=== PATIENT | female | born 1990 | race Caucasian/White ===

== ENCOUNTER 2020-09-21 15:06 | Emergency (ER) | payer OTHER ==
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
[2020-09-21] MEDS ORDERED: CEFAZOLIN SODIUM 1 GM/VIAL ONE (16:49)
[2020-09-21] MEDS ORDERED: SMZ./TMP. 800/160 MG TABLET ONE (16:50)
[2020-09-21] MEDS ORDERED: WATER FOR INJ,STERILE 10 ML ONE (16:50)
[2020-09-21 17:17] VITALS: BP 151/95; TEMP 98.1; O2SAT 98
== END 2020-09-21 17:09 | disposition home or self-care (01) ==
LOC: ER 15:06
DX: L03.311 Cellulitis of abdominal wall (principal)
CPT/HCPCS: 96372; 99284; J0690

== ENCOUNTER 2020-10-06 06:44 | Emergency (ER) | payer OTHER ==
--- OUTSIDE RECORDS SUMMARY | 2020-10-06 06:48 | XMS REPORT | Continuity of Care Document ---
:1990 Author Organization [facility] t Address [address] [place] [address] Care Team Providers Name Role Phone PCP Primary Care Physician Unavailable Advance Directives Directive Decision Effective Date Termination Date Comments Sour ce Yes N/A [facility] - [facility] Problems Condition Condition Condition Status Onset Resolution [...] [facility] th Nausea and Problem [facility] MORALES vomiting S - St. 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 finger of Elizabe left hand th Tobacco Problem [facility] abuse S - [facility] Elizabe th 25 weeks Problem CHRISTU gestation S - St. of Elizabe th Pneumonia Problem JENNIFER U S - [facility] th Pyelonephr Problem [facility] MORALES itis S - [facility] El[facility] th Seroma [...] Date Date Clinician Aspirin Allergy Active Unknown CHRISTU to whether 02-01 S - [facility] patient has 00:00: Tram zabe e any health 00 th problems Aspirin Propensi Active Yreka ty to 10-20 Methodi adverse 00:00: st reaction 00 s to drug Social History Social Habit Start Date Stop Date Quantity Comments Source Tobacco use and 2017-10-20 2017-10-20 Never used Dalton Cramer ethodist exposure 00:00:00 00:00:00 Sex [birth year] Dalton Cramer ethodist 00:00:00 00:00:00 Smoking Status Start Date Stop Date Source Ex-smoker (finding) 2020-06-08 12:42:00 2020-06-08 12:42:00 [facility] - [facility] Never smoker [facility] Medications Ordered Filled Start Stop Current Ordering Indication Dosage Frequency Signature Comments Components Source Medication Medication Date Date Medication? Clinician (SIG) Name Name Diclofenac 2019-07 No 75mg [facility] Sodium -13 S - St. (Voltaren) 14:14: Elizabe 75 Mg TABEC Methocarbam 2019-07 No 500mg MILTON TU ol -13 S - St. (Robaxin) 14:14: Elizabe 500 Mg TAB Methocarbam 2019-07 No 500mg [facility] TU ol 0-07 S - St. (Robaxin) 13:51: Elizabe 500 Mg TAB Prednisone 2019-07 No 20mg [facility]RI[facility]U (Deltasone) 0-07 S - St. 20 Mg TAB 13:51: Elizabe 00 th Acetaminoph 2019-07 2020- No 1 MIL[facility] TU en/Codeine 0-07 11-07 S - St. Phosphate 13:51: 00:00 Elizabe (Tylenol 00 :00 th #3) 1 Each TAB Albuterol 20200 No 2 [facility]RI[facility]U (Proair Hfa 7-12 S - St. Inh) 200 10:41: Elizabe Puff/8.5 Gm th AERO Promethazin 2019-0 No 50mg JENNIFER U e Hcl 7-12 S - St. (Phenergan) 10:41: Elizab e 25 Mg TAB 00 th Acetaminoph 2020-0 No 1 JENNIFER U en/Hydrocod 7-12 S - St. one Bitart 10:17: Elizabe ([place] 00 10/325) 1 Each TAB Albuterol 2020-0 No 2.5mg CHRISTU Sulfate 7-12 S - St. (Proventil 10:17: Elizabe Neb Soln) 00 2.5 Mg/3 Ml UD Ibuprofen 2019-0 No 800mg CHRISTU (Motrin) 7-12 S - St. 800 Mg TAB 10:17: Elizabe 00 th Albuterol 2020- No 2 [facility] (Proair Hfa 3-10 31-12 S - St. Inh) 200 13:41: 00:00 Elizabe Puff/8.5 Gm 00 :00 AERO Prednisone 2019- No 20mg JENNIFER U (Deltasone) 3- 04-05 S - St. 20 Mg TAB 13:41: 00:00 Elizabe 00 :00 th Azithromyci 2019- No 250mg CHRI SYDNEE n 3-10 28-04 S - St. (Zithromax) 13:41: 00:00 Lynne be 250 Mg TAB 00 : Amoxicillin 2019- No 875mg CHRI SYDNEE /Clavulanat -10-05 S - St. e Potassium 13:41: 00:00 [...] 01:40: 00:00 Elizab e (Prenatabs 00 :00 Rx Tablet) 1 Each TABLET Promethazin 2018-07- No 12.5mg CHR ISTU e Hcl 08-2205 S - St. (Phenergan) 01:40: 00:00 Lynne be 12.5 Mg 00 :00 th TABLET Cephalexin 2018- No 500mg MILTON TU (Keflex) 03-03 S - St. 500 Mg CAP 11:26: 00:00 Elizab e 00 :00 th Cephalexin 2019- No 500mg MILTON MORALES (Keflex) 8-08 08-08 S - St. 500 Mg CAP 11:24: 00:00 Elizab e 00 :00 th Acetaminoph 2018- 2019- No 1 MIL[facility] MORALES en/Hydrocod 12-15- S - St. one Bitart 18:04: 00:00 Elizab e ([place] 00 :00 th 10/325) 1 Tab TAB Cephalexin 2019- No 250mg MILTON MORALES (Keflex) 5- S - St. 250 Mg CAP 18:03: 00:00 Elizab e 00 :00 th Cephalexin 2019- No 500mg MLITON MORALES (Keflex) -14 12- S - St. 500 Mg CAP 22:08: 00:00 Elizab e 00 :00 th Trimethopri 2019- No 2 [place] MORALES m/Sulfameth 4-14 11- S - St. oxazole 22:08: 00:00 Elizabe (Bactrim 00 :00 th Ds, Septra Ds, Sulfatrim Ds) 1 Each TAB Trimethopri 2019- No 1 [place] MORALES m/Sulfameth 4-18 - S - St. oxazole 17:58: 00:00 Elizabe (Bactrim 00 :00 th Ds, Septra Ds, Sulfatrim Ds) 1 Each TAB Cephalexin 2019- No 500mg [facility] MORALES (Keflex) 4-18 - S - St. 500 Mg CAP 17:58: 00:00 Elizab e 00 :00 th Prednisone 2018- 2019- No 60mg JENNIFER U (Deltasone) 3-13 - S - St. 20 Mg TAB 23:24: 00:00 Elizabe 00 :00 th Azithromyci 2019- No 1 MIL[place] MORALES n 2-19 - S - St. (Zithromax 21:43: 00:00 Elizab e Z-Frank) 6 00 :00 th Tab/Pkg TAB Albuterol 2019- No 1 [facility]U Sulfate 4-08 04- S - St. (Proventil 16:52: 00:00 Elizab e Hfa Inh) 00 :00 th 200 Puff/6.7 Gm AERO Amoxicillin 2018- No 875mg CHRI SYDNEE /Clavulanat -02 27- S - St. e Potassium 16:52: 00:00 Lynne be (Augmentin 00 : 875 Mg) 875 Mg TABLET Methocarbam 2018- No 500mg CHRI SYDNEE ol -02 27- S - St. (Robaxin) 16:52: 00:00 Elizabe 500 Mg TAB 00 :00 Tramadol/Ac 2018- No 1 MILTON TU etaminophen -02 27- S - St. (Ultracet) 16:52: 00:00 Elizab e 1 Tab TAB : Meloxicam 2015-07- No 7.5mg JNENIFER U (Mobic) 7.5 2-11 27- S - St. Mg TAB 18:17: 00:00 Elizabe 00 : Prednisone 2015-07 2019- No 40mg JENNIFER U (Deltasone) 2-11 27- S - St. 20 Mg TAB 18:17: 00:00 Elizabe 00 : Tramadol 2015-07 2019- No 50mg CHRISTU Hcl 2-11 27- S - St. (Ultram) 50 18:17: 00:00 Lynne be Mg TAB 00 : Albuterol 2014-07 2019- No 1 CHRISTU (Proair Hfa 08-01 S - St. Inh) 200 15:04: 00:00 Elizabe Puff/8.5 Gm 00 : AERO Azithromyci 2014-07 2019- No 1 MILTON MORALES n -11-14 S - St. (Zithromax 15:04: 00:00 Elizab e Z-Frank) 6 00 :00 th Tab/Pkg TAB Prednisone 2014-07 2019- No 40mg JENNIFER U (Deltasone) 08-01 S - St. 20 Mg TAB 15:04: 00:00 Elizabe 00 : th Tramadol 2019- No 50mg CHRISTU Hcl -11-14 S - St. (Ultram) 50 18:11: 00:00 Lynne be Mg TAB 00 :00 Ibuprofen 2019- No 800mg JENNIFER U (Motrin) -24 - S - St. 800 Mg TAB 16:50: 00:00 Elizab e 00 :00 th Ondansetron 2019- No 4mg MILTON TU Hcl -24 - S - St. (Zofran) 4 16:50: 00:00 Elizab e Mg TAB 00 :00 Penicillin 2019- No 500mg MILTON TU V Potassium -17 11- S - St. (Pen Vk) 16:50: 00:00 Elizabe 500 Mg TAB 00 : Tramadol 2019- No 50mg CHRISTU Hcl -24 - S - St. (Ultram) 50 16:50: 00:00 Lynne be Mg TAB 00 :00 Labetalol 2019- No 100mg CHRISTU Hcl - S - St. (Normodyne) 00:00 Elizabe 100 Mg TAB :00 Promethazin 2019- No 50mg CHRISTU e Hcl - S - St. (Phenergan) 00:00 Elizabe 50 Mg :00 th TABLET Immunizations Ordered Immunization Filled Immunization Date Status Commen ts Source Name Name Measles/Mumps/Rubell 2020-02-05 Completed [facility] - [facility] a 00:00:00 [facility] Tetanus/Diphtheria/A 2020-02-05 Completed [facility] - St[facility] cellular Pertussis 00:00:00 Elizab eth Tetanus/Diphtheria/A 2018-10-06 [facility]:00 Tramzab [facility] Vital Signs Vital Name Observation Time Observation Value Comments Source BP Systolic 2020-06-08 14:26:00 119 mm[Hg] [facility] Heart Rate 2020-06-08 14:26:00 86 /min [facility] Respiratory rate 2020-06-08 14:26:00 17 /min [facility] Body Temperature 2020-06-08 14:26:00 98.2 [degF] [facility] BP Diastolic 2020-06-08 14:26:00 81 mm[Hg] [facility] BP Diastolic 2020-06-08 12:06:00 87 mm[Hg] [facility] BP Systolic 2020-06-08 12:06:00 122 mm[Hg] [facility] Heart Rate 2020-06-08 12:06:00 108 /min [facility] Respiratory rate 2020-06-08 12:06:00 18 /min [facility] Body Temperature 2020-06-08 12:06:00 98.0 [degF] [facility] - [facility] Procedures Procedure Date / Time Performed Performing Clinician Brock purvi Computed tomography of 2020-06-08 00:00:00 MILTON TUS - St. cervical spine without [facility] contrast Plan of Care Planned Activity Planned Date Details Comments Source Goal Patient referral [code = [facility]R [facility] - St. 8846141 ] [facility] Goal Patient referral [code = [facility] - St. [id number] ] [facility] Goal Patient referral [code = [facility] - St. [id number] ] [facility] Goal Patient referral [code = [facility] - St. [id number] ] [facility] Instructions Where to Get Help Paying [facility] - St. for Your Prescriptions Lynne everardo Instructions Wound Infection [facility] - S t. [facility] Instructions DI for Acute Bronchitis [facility] - [facility] Instructions Replacing Sweetened [facility] - St. Drinks with Noncaloric Lynne everardo Drinks May Aid in Weight Loss Instructions Coronavirus Disease 2019 [facility] - [facility] (COVID-19) Overview Arabella h Encounters Start End Encounter Admission Attending Care Care Encounter Source Date/Time Date/Time Type Type Clinicians Facility Department ID 2020-06-08 2020-06-08 Departed NIKITA PARHAM [id number] [facility] 12:06:00 14:25:[address] 72 S - St. Room [facility] Klein Results Test Description Test Time Test Comments Results Result Comments Source FINGER 1 DIGIT 2018-12-29 [facility] [place] 20:14:00 [address] [place], [place] [address]DVIOGGMDSN IMAGING REPORTPatient Name: VARGHESE KUMARAbida of Service: [id number]: 28 Sex: F Order #: [id number] Room: [facility]: 1990 X-Ray Number: [id number] Record Number: [id number] Hospital Number: [id number] Physician: PRABHA CARDENAS Physician: Ayana GONZALEZ second [...]
[2020-10-06 07:41] LABS: Absolute Lymphocytes (CBC) 1.6 K/uL (0.7-4.9); Basophils % 1.2 % (0-1.3); Hematocrit 41.7 % (36.0-45.0); RBC Red Blood Cell Count 4.84 M/uL (3.86-4.86)
[2020-10-06 07:57] LABS: BUN Blood Urea Nitrogen 8 mg/dL (7-18); Bicarbonate 26 mmol/L (21-32); Glucose Level 84 mg/dL (74-106); Potassium 4.1 mmol/L (3.5-5.1); Sodium Level 144 mmol/L (136-145)
[2020-10-06 08:01] LABS: HCG, Quantitative < 1 mIU/mL (1-3)
--- NOTE | 2020-10-06 08:20 | ER ---
Nurse's Notes [facility] Name: Wilda Banda Age: 29 yrs Sex: Female : 1990 Arrival Date: 10/06/2020 Time: 06:47 Bed 20 Private MD: Diagnosis: Other abnormal uterine and vaginal bleeding Presentation: 10/06 07:23 Chief complaint: Patient states: burning with urination. Pt states that she has been on ss two antibiotics, but quit taking one almost a week ago because she found out she was and believed it may cause defects. Coronavirus screen: Client denies travel out of the [place] in the last 14 days. Ebola Screen: Patient denies exposure to infectious person. Patient denies travel to an Ebola-affected area in the 21 days before illness onset. Initial Sepsis Screen: Does the patient meet any 2 criteria? No. Patient's initial sepsis screen is negative. Does the patient have a suspected source of infection? No. Patient's initial sepsis screen is negative. Risk Assessment: Do you want to hurt yourself or someone else? Patient reports no desire to harm self or others. Onset of symptoms is unknown. 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 surgeries after ; ss Tonsillectomy; Knee surgery; - Immunization history:: Adult Immunizations up to date. - Social history:: Smoking status: Patient denies any tobacco usage or history of. Screenin:29 Abuse screen: Denies threats or abuse. Denies injuries from another. Nutritional ss screening: No deficits noted. Tuberculosis screening: Never had TB. Fall Risk None identified. Assessment: 08:09 Obstetrical Assessment: General assessment: awake and alert, anxious, skin warm and bw dry, Patient reports Abdominal pain, bleeding since this AM . General: Appears in no apparent distress. uncomfortable, Behavior is cooperative, appropriate for age, anxious. Pain: Complains of pain in suprapubic area Pain currently is 4 out of 10 on a pain scale. Neuro: No deficits noted. Cardiovascular: No deficits noted. Respiratory: No deficits noted. : Reports burning with urination, urgency, urinary frequency, vaginal bleeding that is. Vital Signs: 07:23 BP 129 / 73; Pulse 89; Resp 18; Temp 98.2(O); Pulse Ox 99% on R/A; Pain 0/10; ss 08:09 BP 97 / 55; Pulse 71; Resp 20; Pulse Ox 100% on R/A; Pain 3/10; bw Vitals: 08:09 Heart Tones N/A. Pt 4 weeks . . ED Course: 06:47 Patient arrived in ED. mr 07:09 Rosalio Chavez MD is Attending Physician. tw4 07:28 Triage completed. ss 07:29 Arm band placed on right wrist. ss 07:29 Patient has correct armband on for positive identification. Bed in low position. Call ss light in reach. Pulse ox on. NIBP on. Warm blanket given. 07:29 Patient maintains SpO2 saturation greater than 95% on room air. 07:47 Erika Mix, RN is Primary Nurse. 08:09 No provider procedures requiring assistance completed. 08:37 PT self dc'd IV. Bleeding controlled. Administered Medications: No medications were administered Outcome: 08:20 Discharge ordered by . tw4 08:37 Discharged to home ambulatory. 08:37 Condition: good 08:37 Discharge instructions given to patient, Instructed on discharge instructions, follow up and referral plans. medication usage, Demonstrated understanding of instructions, follow-up care, medications. 08:37 Patient left the ED. Signatures: Carlota Morgan Shelby, CORBIN ALANIZ Rosalio Chavez MD MD [facility] Erika Mix RN RN
--- NOTE | 2020-10-06 08:21 | EDPHYS ---
Physician Documentation [facility] Name: Wilda Banda Age: 29 yrs Sex: Female : 1990 Arrival Date: 10/06/2020 Time: 06:47 Bed 20 Private MD: ED Physician Rosalio Chavez HPI: 10/06 17:40 This 29 yrs old Female presents to ER via Ambulatory with complaints of Pain tw4 With Urination. 17:40 The patient presents to the emergency department with vaginal bleeding. The estimated tw4 gestational age is 5 weeks. course: care: none. Previous pregnancies: the patient has never been . Associated signs and symptoms: The patient has no apparent associated signs or symptoms. The patient has not experienced similar symptoms in the past. 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 surgeries after ; ss Tonsillectomy; Knee surgery; - Immunization history:: Adult Immunizations up to date. - Social history:: Smoking status: Patient denies any tobacco usage or history of. ROS: 17:40 Constitutional: Negative for fever, chills, and weight loss, Eyes: Negative for injury, tw4 pain, redness, and discharge, Cardiovascular: Negative for chest pain, palpitations, and edema, Respiratory: Negative for shortness of breath, cough, wheezing, and pleuritic chest pain, Abdomen/GI: Negative for abdominal pain, nausea, vomiting, diarrhea, and constipation, Back: Negative for injury and pain, Skin: Negative for injury, rash, and discoloration, Neuro: Negative for headache, weakness, numbness, tingling, and seizure. 17:40 : Positive for vaginal bleeding. Exam: 17:40 Constitutional: This is a well developed, well nourished patient who is awake, alert, tw4 and in no acute distress. Head/Face: Normocephalic, atraumatic. Chest/axilla: Normal chest wall appearance and motion. Nontender with no deformity. No lesions are appreciated. Cardiovascular: Regular rate and rhythm with a normal S1 and S2. No gallops, murmurs, or rubs. Normal PMI, no JVD. No pulse deficits. Respiratory: Lungs have equal breath sounds bilaterally, clear to auscultation and percussion. No rales, rhonchi or wheezes noted. No increased work of breathing, no retractions or nasal flaring. Abdomen/GI: Soft, non-tender, with normal bowel sounds. No distension or tympany. No guarding or rebound. No evidence of tenderness throughout. Back: No spinal tenderness. No costovertebral tenderness. Full range of motion. MS/ Extremity: Pulses equal, no cyanosis. Neurovascular intact. Full, normal range of motion. Neuro: Awake and alert, GCS 15, oriented to person, place, time, and situation. Cranial nerves II-XII grossly intact. Motor strength 5/5 in all extremities. Sensory grossly intact. Cerebellar exam normal. Normal gait. Vital Signs: 07:23 BP 129 / 73; Pulse 89; Resp 18; Temp 98.2(O); Pulse Ox 99% on R/A; Pain 0/10; ss 08:09 BP 97 / 55; Pulse 71; Resp 20; Pulse Ox 100% on R/A; Pain 3/10; bw MDM: 08:20 Patient medically screened. tw4 17:40 Differential diagnosis: delivery of infant. Data reviewed: vital signs, nurses notes. Data reviewed: lab test result(s), urinalysis. Data interpreted: Pulse oximetry: Interpretation: normal. Counseling: I had a detailed discussion with the patient and/or guardian regarding: the historical points, exam findings, and any diagnostic results supporting the discharge/admit diagnosis, lab results. Medical screen evaluation completed. [facility] emergency medical condition absent. Medical screen evaluation completed. [facility] emergency medical condition absent. ED course: urine and Beta HCG tests negative. 10/06 07:10 Order name: Quantitative Hcg tw4 10/06 07:10 Order name: Abo/rh Typing; Complete Time: 08:19 tw4 10/06 07:10 Order name: Basic Metabolic Panel; Complete Time: 08:19 tw4 10/06 07:10 Order name: CBC with Diff; Complete Time: 08:19 tw4 10/06 07:11 Order name: HCG, Quantitative; Complete Time: 08:19 EDMS 10/06 07:49 Order name: Urine Dipstick--Ancillary (enter results) md 10/06 07:10 Order name: Labs collected and sent; Complete Time: 07:49 tw4 10/06 07:10 Order name: NPO; Complete Time: 07:49 tw4 10/06 07:10 Order name: Urine Dipstick-Ancillary (obtain specimen); Complete Time: 07:49 tw4 10/06 07:25 Order name: Urine Dipstick-Ancillary (obtain specimen); Complete Time: 07:48 tw4 10/06 07:25 Order name: Urine Test (obtain specimen); Complete Time: 07:48 tw4 Administered Medications: No medications were administered Disposition: 10/06/20 08:20 Discharged to Home. Impression: Other abnormal uterine and vaginal bleeding. - Condition is Stable. - Discharge Instructions: Dysfunctional Uterine Bleeding. - Medication Reconciliation Form, Thank You Letter, Antibiotic Education, Prescription Opioid Use form. - Follow up: Private Physician; When: Upon discharge from the Emergency Department; Reason: Recheck today's complaints, Continuance of care, Re-evaluation by your physician. - Problem is new. - Symptoms have improved. Signatures: Dispatcher [employer] [facility] Wilda Nolan RN RN Rosalio العلي MD MD tw4 Corrections: (The following items were deleted from the chart) 08:37 08:20 10/06/2020 08:20 Discharged to Home. Impression: Other abnormal uterine and ss vaginal bleeding. Condition is Stable. Forms are Medication Reconciliation Form, Thank You Letter, Antibiotic Education, Prescription Opioid Use. Follow up: Private Physician; When: Upon discharge from the Emergency Department; Reason: Recheck today's complaints, Continuance of care, Re-evaluation by your physician. Problem is new. Symptoms have improved. tw4
[2020-10-06 08:43] VITALS: TEMP 98.2
[2020-10-06 09:04] LABS: Urine Blood 3+ (NEG); Urine Glucose NEGATIVE (NEG); Urine Protein 2+ (NEG); Urine Specific Gravity 1.025 (1.005-1.030)
[2020-10-08 11:19] VITALS: BP 97/55; O2SAT 100
== END 2020-10-06 08:37 | disposition home or self-care (01) ==
LOC: ER 06:44
DX: N93.8 Other specified abnormal uterine and vaginal bleeding (principal)
CPT/HCPCS: 36415; 80048; 81003; 84702; 85025; 86900; 86901; 99284